=== PATIENT | male | born 1975 | race Two or more races ===

== ENCOUNTER 2019-04-03 19:46 | Inpatient (IN) | payer OTHER ==
[~2019-04-03] VITALS: Ht 162.6 cm; Wt 62.0 kg
[2019-04-03 21:27] LABS: Basophils # (auto) 0.1 uL; Eosinophils # (auto) 0.1 uL; Monocytes # (auto) 0.9 uL; Neutrophils # (auto) 6.5 uL; White Blood Cell 9.5 10^3/uL (4.4-10.8)
[2019-04-03 21:29] LABS: Basophils % (auto) 0.7 % (0.0-2.0); Eosinophils % (auto) 1.4 % (0.0-7.0); Hematocrit 46.2 % (41.0-53.0); Hemoglobin 15.2 g/dL (13.5-17.5); Lymphocytes # (auto) 1.8 uL; Lymphocytes % (auto) 19.3 % (10.0-50.0); Mean Corpuscular Hemoglobin 26.4 pg (28.0-32.0); Monocytes % (auto) 9.6 % (0.0-12.0); Nucleated Red Blood Cells % 0.1 %; Platelet Count (auto) 293 10^3/uL (140-450); Red Blood Cells 5.77 10^6/uL (4.5-5.90); Red Cell Distribution Width 14.1 % (11.8-14.3)
[2019-04-03 21:46] LABS: Albumin 3.2 g/dL (3.4-5.0); Anion Gap 10 (5-15); Blood Urea Nitrogen 13 mg/dL (7-18); Calcium 8.6 mg/dL (8.5-10.1); Carbon Dioxide 28 mmol/L (21-32); Chloride 101 mmol/L (98-107); Potassium 4.4 mmol/L (3.5-5.1); Sodium 139 mmol/L (136-145)
[2019-04-03 21:49] LABS: Alanine Aminotransferase 23 U/L (16-61); Aspartate Aminotransferase 8 U/L (15-37); BUN/Creatinine Ratio 13.8; GFR African American 112 mL/min; GFR Non-African American 92 mL/min; Glucose 397 mg/dL (74-106)
[2019-04-03 21:52] LABS: Alkaline Phosphatase 195 U/L (45-117); Bilirubin, Total 0.2 mg/dL (0.2-1.0)
[2019-04-03] MEDS ORDERED: IOHEXOL 350 MG/ML 100ML IJ ONE (23:06)
[2019-04-03] MEDS ORDERED: SODIUM CHLORIDE 0.9% 1,000 ML IV ONE (23:15)
[2019-04-04] MEDS ORDERED: PIPERACILLIN-TAZOB 3.375GM 100 ML IV ONE (02:15)
[2019-04-04] MEDS ORDERED: VANCOMYCIN 1GM/250ML 250 ML IV ONE (02:15)
[2019-04-04] MEDS ORDERED: ALBUTEROL SULF 2.5 MG/0.5ML(0.5%) NEB SOLN NEB PRN (04:30)
[2019-04-04] MEDS ORDERED: TEMAZEPAM 15 MG CAP PO PRN (04:30)
[2019-04-04] MEDS ORDERED: ACETAMINOPHEN 325 MG TAB PO PRN (04:30)
[2019-04-04] MEDS ORDERED: ONDANSETRON HCL 4 MG/2 ML VIAL IV PRN (04:30)
[2019-04-04 09:29] VITALS: BP 117/76
[2019-04-04] MEDS ORDERED: LEVOFLOXACIN 750MG 150 ML IV SCH (10:00)
[2019-04-04] MEDS: FAMOTIDINE 20 MG TAB PO SCH ×2 (10:08→20:10)
[2019-04-04 12:00] VITALS: BP 117/70
[2019-04-04] MEDS ORDERED: DEXTROSE (50%) 50ML SYRG IV PRN (14:15)
[2019-04-04] MEDS: FLUCONAZOLE 200MG/100ML 100 ML IV SCH ×2 (16:29→17:32)
--- NOTE | 2019-04-04 16:49 | NUR ---
ASSESSED FOR PRN MED NEB BREATHING TX, PT NOT IN RESPIRATORY DISTRESS, SPO2 97%, HR 102 WITH CLEAR BS. WILL CONTINUE TO MONITOR PT.
[2019-04-04 17:00] VITALS: BP 136/75
[2019-04-04] MEDS: ACCU-CHEK COMFORT CURVE STRIP VI SCH ×2 (17:32→21:28)
[2019-04-04] MEDS: InsuLIN REG 1unit/0.01ml Soln (100units/ml) SC SCH ×2 (17:33→21:28)
--- NOTE | 2019-04-04 19:39 | NUR ---
Respiratory note: AT BEDSIDE TO ASSESS FOR PRN TX, NO S/S OF DISTRESS NOTED, BS ARE CLEAR T/O, NO TX INDICATED AT THIS TIME. WILL CONTINUE TO MONITOR NEEDED.
--- NOTE | 2019-04-04 20:50 | NUR ---
PATIENT LYING IN BED COMFORTABLY. FAMILY AT BEDSIDE. INFORMED PATIENT AND FAMILY OF PLAN OF CARE, PULMONARY CONSULT WITH DR CARTER, SPUTUM CX THAT STILL NEEDS TO BE COLLECTED, AND AM LABS. PATIENT AND FAMILY VERBALIZES UNDERSTANDING. SPECIMEN GIVEN TO PATIENT. PATIENT SHOWERED THIS EVENING AND RETURNED BACK TO BED. WILL CONTINUE TO MONITOR PATIENT.
[2019-04-04 20:55] VITALS: BP 136/75
[2019-04-04 22:00] VITALS: BP 168/83
[2019-04-05 04:47] VITALS: BP 161/85
--- NOTE | 2019-04-05 04:51 | NUR ---
PATIENT EDUCATION PATIENT EDUCATION GIVEN TO PATIENT REGARDING DIABETES IN [place].
[2019-04-05] MEDS: InsuLIN REG 1unit/0.01ml Soln (100units/ml) SC SCH ×4 (06:03→21:28)
[2019-04-05] MEDS: ACCU-CHEK COMFORT CURVE STRIP VI SCH ×4 (06:03→21:29)
[2019-04-05 06:31] LABS: Basophils # (auto) 0.1 uL; Basophils % (auto) 0.4 % (0.0-2.0); Eosinophils # (auto) 0 uL; Eosinophils % (auto) 0.3 % (0.0-7.0); Mean Corpuscular Volume 79.7 fL (80.0-100.0); Monocytes # (auto) 1.2 uL; Red Blood Cells 5.69 10^6/uL (4.5-5.90)
[2019-04-05 06:34] LABS: Hematocrit 45.3 % (41.0-53.0); Lymphocytes % (auto) 14.1 % (10.0-50.0); Mean Corpuscular Hemoglobin 26.3 pg (28.0-32.0); Monocytes % (auto) 8.7 % (0.0-12.0); Neutrophils # (auto) 10.7 uL; Neutrophils % (auto) 76.5 % (37.0-80.0); Platelet Count (auto) 292 10^3/uL (140-450); Red Cell Distribution Width 13.8 % (11.8-14.3)
[2019-04-05 06:46] LABS: Anion Gap 11 (5-15); BUN/Creatinine Ratio 11.9; Blood Urea Nitrogen 8 mg/dL (7-18); Calcium 8.6 mg/dL (8.5-10.1); Carbon Dioxide 25 mmol/L (21-32); Chloride 104 mmol/L (98-107); GFR African American 165 mL/min; GFR Non-African American 136 mL/min; Glucose 219 mg/dL (74-106); Potassium 3.5 mmol/L (3.5-5.1); Sodium 140 mmol/L (136-145)
[2019-04-05 07:45] LABS: Magnesium 1.9 mg/dL (1.6-2.6)
--- NOTE | 2019-04-05 07:45 | NUR ---
opening patient in bed, bed in lowest position, call light within reach. No distress noted at this time. Will f/u with morning assessment. Chest Ct-- bronchiectesis calcified paques with R hemithorax CXR bilat reticular nodular infiltrates R greater than L pleural effusion Blood cultures negative Sputum sent but no result HGB a1c 12.4 newly diabetic [patient wbc 14 crea 0.67 tox screen pending pulmonology consult pending (darshan) will continue to monitor this patient
[2019-04-05 09:00] VITALS: BP 129/79
[2019-04-05] MEDS: FAMOTIDINE 20 MG TAB PO SCH ×2 (09:14→21:28)
[2019-04-05] MEDS: FLUCONAZOLE 200MG/100ML 100 ML IV SCH ×2 (09:14→11:20)
--- NOTE | 2019-04-05 09:55 | NUR ---
Respiratory note: ASSESSED PATIENT FOR PRN BREATHING TX. PT IS AWAKE AND ALERT. NO RESP. DISTRESS NOTED OR STATED AT THIS TIME. PATIENT IS ON ROOM AIR, SPO2 96%, RR 18, HR 110. PATIENT IS AWARE TO HAVE RT PAGED IF BREATHING TX IS NEEDED OR STATED.
[2019-04-05 13:00] VITALS: BP 126/75
[2019-04-05] MEDS: LEVOFLOXACIN 750MG 150 ML IV SCH (16:43)
--- NOTE | 2019-04-05 16:43 | NUR ---
give report to leonela Sanches transferring patient, to [place] room 238 with Myron. Report given to myron and update on latest plan of care.
--- NOTE | 2019-04-05 16:55 | NUR ---
CAME ON WC FROM [facility], ALERT AND ORIENTED X4, NOT IN DISTRESS, RR=18 SAT=97%, HEART RAT=74, DENIED SOB OR CHEST PAIN, ABDOMEN SOFT WITH ACTIVE BS, SKIN INTACT WARM TO TOUCH, NO WOUND OR SKIN BREAK NOTED, AMBULATES TO BROOM WITH OUT NO RESTRICTIONS, DENIED PAIN, VS T=98.2 RR=18 SAT=97% P=79 GU=124/73, RESTING ON BED, HEAD OF BED ELEVATED, BED ON LOW POSITION, RAILS UP X2, CALL LIGHT ON REACH, FAMILY AT BED SIDE, WILL CONTINUE MONITORING.
[2019-04-05 17:07] VITALS: BP 111/74
[2019-04-05] MEDS: metFORMIN HYDROCHLORIDE 500 MG TAB PO SCH (17:59)
--- NOTE | 2019-04-05 19:50 | NUR ---
SITTING ON BED SOCIALIZING WITH FAMILY, NOT IN DISTRESS, DENIED PAIN, REPORT WAS GIVEN TO THE PURCHASING/RECEIVING RN.
[2019-04-05 22:00] VITALS: BP 123/86
--- NOTE | 2019-04-05 22:53 | NUR ---
Respiratory note: AT BEDSIDE TO ASSESS FOR PRN TX, TX NOT INDICATED AT THIS TIME, BS ARE CLEAR T/O. NO S/S OF DISTRESS NOTED. PT AWARE I CAN BE PAGED AT ANY TIME. RT NAME AND PAGER ASSIGNMENT WRITTEN ON PTS ROOM BOARD. WILL CONTINUE TO MONITOR.
[2019-04-06 05:00] VITALS: BP 131/82
--- NOTE | 2019-04-06 06:05 | NUR ---
CALLED RT AND NOTIFIED OF THE NEED FOR SPUTUM INDUCTION ORDERED FOR AFB.
--- NOTE | 2019-04-06 06:45 | NUR ---
Respiratory note: PT ASSESSED FOR PRN MEDNEB TX. NO RESPIRATORY DISTRESS NOTED AT THIS TIME. TX NOT INDICATED. SPO2 94% ON RA B/S HR 106 CLEAR-DIMINISHED, RR 20. PT AWARE TO HAVE RT PAGED IF THEY BECOME SOB.
[2019-04-06] MEDS: metFORMIN HYDROCHLORIDE 500 MG TAB PO SCH ×2 (07:38→18:40)
[2019-04-06] MEDS: InsuLIN REG 1unit/0.01ml Soln (100units/ml) SC SCH ×4 (07:39→20:31)
[2019-04-06] MEDS: ACCU-CHEK COMFORT CURVE STRIP VI SCH ×4 (07:39→20:31)
[2019-04-06 08:25] VITALS: BP 90/60
--- NOTE | 2019-04-06 09:50 | NUR ---
PT'S AT BEDSIDE. INSTRUCTED AND EDUCATED ON AIRBORNE ISOLATION PRECAUTIONS. PT'S STATES SHE WILL NOT WEAR THE PROTECTIVE EQUIPMENT.
[2019-04-06] MEDS ORDERED: VANCOMYCIN PER PHARMACY 0 MG IV SCH (10:45)
[2019-04-06] MEDS: FAMOTIDINE 20 MG TAB PO SCH ×2 (10:47→20:18)
[2019-04-06] MEDS: FLUCONAZOLE 200MG/100ML 100 ML IV SCH ×2 (10:47→12:03)
[2019-04-06] MEDS: SODIUM CHLORIDE 0.9% 1,000 ML IV SCH (12:03)
[2019-04-06] MEDS: VANCOMYCIN 1GM/250ML 250 ML IV SCH ×2 (12:24→20:18)
[2019-04-06] MEDS: LEVOFLOXACIN 750MG 150 ML IV SCH (12:24)
[2019-04-06 13:00] VITALS: BP 114/68
--- NOTE | 2019-04-06 13:25 | NUR ---
DR. GUEVARA IN TO SEE PT AND TO SPEAK WITH .
[2019-04-06 17:31] VITALS: BP 117/65
--- NOTE | 2019-04-06 18:11 | NUR ---
Respiratory note: ASSESSED PT FOR PRN MED NEB AT THIS TIME, PT DENIES SOB AT THIS TIME, NO RESP DISTRESS NOTED, NO TX INDICATED. PULSE OX 95% ON RA, HR 105, RR 18, BILATERAL BS CLEAR
[2019-04-06 22:01] VITALS: BP 119/73
[2019-04-07] MEDS: SODIUM CHLORIDE 0.9% 1,000 ML IV SCH ×2 (03:25→21:00)
[2019-04-07] MEDS: VANCOMYCIN 1GM/250ML 250 ML IV SCH ×3 (03:28→20:59)
--- NOTE | 2019-04-07 04:20 | NUR ---
0330 Sputum specimen sent for AFB, Respiratory culture and Respiratory culture for mycoplasma & fungal culture, verified with Virginia from Lab. Noted AFB for 04/06 still active in orders, not in process. Virginia from Lab said to follow up with [facility] in am when they open at 8am.
[2019-04-07 04:35] VITALS: BP 107/70
[2019-04-07] MEDS: InsuLIN REG 1unit/0.01ml Soln (100units/ml) SC SCH ×4 (06:41→21:03)
[2019-04-07] MEDS: metFORMIN HYDROCHLORIDE 500 MG TAB PO SCH ×2 (06:41→18:05)
[2019-04-07] MEDS: ACCU-CHEK COMFORT CURVE STRIP VI SCH ×4 (06:42→21:03)
[2019-04-07 07:30] VITALS: BP 115/71
[2019-04-07] MEDS: FLUCONAZOLE 200MG/100ML 100 ML IV SCH ×2 (09:30→10:31)
[2019-04-07] MEDS: FAMOTIDINE 20 MG TAB PO SCH ×2 (09:30→21:00)
--- NOTE | 2019-04-07 10:23 | NUR ---
[facility] DE[facility]. CONTACTED. 04/06; 04/07 AFB SPECIMEN COLLECTED AND RECEIVED. DR. GUEVARA MADE AWARE OF BOTH COLLECTIONS AND MADE AWARE TO CALL [facility]. FOR CLARIFICATION OF PRIOR ORDER.
[2019-04-07] MEDS: LEVOFLOXACIN 750MG 150 ML IV SCH (11:36)
[2019-04-07 12:15] LABS: Basophils # (auto) 0.1 uL; Eosinophils # (auto) 0.1 uL; Eosinophils % (auto) 0.6 % (0.0-7.0); Platelet Count (auto) 283 10^3/uL (140-450); White Blood Cell 9.7 10^3/uL (4.4-10.8)
[2019-04-07 12:20] LABS: Basophils % (auto) 0.8 % (0.0-2.0); Hematocrit 44.7 % (41.0-53.0); Hemoglobin 14.6 g/dL (13.5-17.5); Lymphocytes # (auto) 1.7 uL; Mean Corpuscular Hemoglobin 26.4 pg (28.0-32.0); Mean Corpuscular Hgb Conc. 32.6 g/dL (32.0-36.0); Mean Corpuscular Volume 80.7 fL (80.0-100.0); Monocytes # (auto) 1.2 uL; Monocytes % (auto) 12.5 % (0.0-12.0); Neutrophils # (auto) 6.6 uL; Neutrophils % (auto) 68.1 % (37.0-80.0); Nucleated Red Blood Cells % 0.1 %; Red Blood Cells 5.54 10^6/uL (4.5-5.90); Red Cell Distribution Width 13.9 % (11.8-14.3)
[2019-04-07 12:41] LABS: BUN/Creatinine Ratio 14.8
[2019-04-07 13:07] VITALS: BP 116/77
[2019-04-07] MEDS ORDERED: VANCOMYCIN 1GM/250ML 250 ML IV SCH (14:00)
--- NOTE | 2019-04-07 15:10 | NUR ---
RT NOTE: PRN TX. NOT INDICATED AT THIS TIME. NO S/S OF RESPIRATORY DISTRESS NOTED. PT. HR. 95, RR 20, POX 96% R/A.
--- NOTE | 2019-04-07 15:22 | NUR ---
Nutrition Assessment Notes please see attached link for complete assessment Est. Needs BW [id number] kcal (25-30 kcal/kgBW), 62-74 gms pro (1.0-1.2 gms/kgBW). Will continue to monitor pertinent labs and reassess nutrient need prn Addendum: 04/07/19 at [address] Amended: Links added.
[2019-04-07 17:02] VITALS: BP 104/79
--- NOTE | 2019-04-07 17:36 | NUR ---
Respiratory note: PT IN NO DISTRESS. PT IN NO NEED OF SVN AT THIS TIME. BREATH SOUNDS ARE CLEAR TO DIM BILATERALLY. PT KNOWS TO CALL RN IF SOB OCCURS.
[2019-04-07 21:39] VITALS: BP 113/74
[2019-04-07 21:51] VITALS: BP 113/74
[2019-04-08] MEDS: VANCOMYCIN 1GM/250ML 250 ML IV SCH ×4 (02:01→21:33)
--- NOTE | 2019-04-08 04:19 | NUR ---
3RD SPUTUM SPECIMEN FOR AFB AND RESPIRATORY CULTURE SENT TO LAB AND VERIFIED WITH DENISA IN LAB.
[2019-04-08 05:23] VITALS: BP 113/67
--- NOTE | 2019-04-08 06:15 | NUR ---
Respiratory note: ROUTINE PRN MN TX ASSESSMENT DONE HR 96, RR 20, POX 96% ON RA, BREATH SOUNDS ARE CLEAR. NO SOB OR DISTRESS NOTED AT THIS TIME. PT WAS NOTIFY TO HAVE RT PAGE IF MN TX WAS NEEDED.
[2019-04-08] MEDS: metFORMIN HYDROCHLORIDE 500 MG TAB PO SCH ×2 (07:24→18:28)
[2019-04-08] MEDS: InsuLIN REG 1unit/0.01ml Soln (100units/ml) SC SCH ×4 (07:24→21:43)
[2019-04-08] MEDS: ACCU-CHEK COMFORT CURVE STRIP VI SCH ×4 (07:25→21:44)
--- NOTE | 2019-04-08 08:10 | NUR ---
LAB CALLED FOR VANCO TROUGH, BLOOD DRAWN. AWAITING RESULT.
[2019-04-08 08:40] VITALS: BP 144/77
[2019-04-08] MEDS: FAMOTIDINE 20 MG TAB PO SCH ×2 (10:48→21:35)
[2019-04-08] MEDS: FLUCONAZOLE 200MG/100ML 100 ML IV SCH ×2 (10:49→11:37)
[2019-04-08] MEDS: SODIUM CHLORIDE 0.9% 1,000 ML IV SCH (12:28)
[2019-04-08] MEDS: LEVOFLOXACIN 750MG 150 ML IV SCH (12:28)
[2019-04-08 12:30] VITALS: BP 131/72
[2019-04-08 17:26] VITALS: BP 119/70
--- NOTE | 2019-04-08 19:13 | NUR ---
Respiratory note: ASSESSED PT FOR PRN MED NEB AT THIS TIME, PT DENIES SOB AT THIS TIME, NO RESP DISTRESS NOTED, NO TX INDICATED, PULSE OX 96% ON RA, HR 100, RR 18, BILATERAL BS CLEAR.
[2019-04-08 22:00] VITALS: BP 106/76
[2019-04-09] MEDS: VANCOMYCIN 1GM/250ML 250 ML IV SCH ×4 (01:51→20:31)
[2019-04-09] MEDS: SODIUM CHLORIDE 0.9% 1,000 ML IV SCH ×2 (04:12→14:35)
[2019-04-09 05:00] VITALS: BP 120/74
[2019-04-09] MEDS: metFORMIN HYDROCHLORIDE 500 MG TAB PO SCH ×2 (06:21→18:35)
[2019-04-09] MEDS: InsuLIN REG 1unit/0.01ml Soln (100units/ml) SC SCH ×4 (06:26→22:35)
[2019-04-09] MEDS: ACCU-CHEK COMFORT CURVE STRIP VI SCH ×4 (06:27→22:00)
--- NOTE | 2019-04-09 07:20 | NUR ---
Opening Shift Note Assumed care of patient, awake and alert. No S/S of distress/SOB or pain. Instructed on POC and to call for assist PRN, will continue to monitor for changes Q1hr and PRN.
[2019-04-09 08:00] VITALS: BP 116/73
--- NOTE | 2019-04-09 10:05 | NUR ---
Respiratory note: PATIENT ASSESSED FOR PRN MED-NEB TX, MEDICATION NOT INDICATED AT THIS TIME PATIENT DENIED NEED AND WAS SHOWING NO SIGNS ACUTE RESPIRATORY DISTRESS. PATIENT INSTRUCTED TO CALL FOR RT IF HE FELT THE NEED FOR TX AT A LATER TIME. 96% R/A
[2019-04-09] MEDS: FLUCONAZOLE 200MG/100ML 100 ML IV SCH ×2 (10:22→11:54)
[2019-04-09] MEDS: FAMOTIDINE 20 MG TAB PO SCH ×2 (10:22→22:34)
[2019-04-09 12:00] VITALS: BP 116/58
[2019-04-09] MEDS: LEVOFLOXACIN 750MG 150 ML IV SCH (12:51)
[2019-04-09 17:00] VITALS: BP 108/71
--- NOTE | 2019-04-09 19:15 | NUR ---
Opening Shift Note Received report from Marisela LIMA. Assumed care of patient, awake and alert, family at bedside. No S/S of distress/SOB or pain. Instructed on POC and to call for assist PRN, will continue to monitor for changes Q1hr and PRN.
[2019-04-09 20:00] VITALS: BP 102/73
--- NOTE | 2019-04-09 20:30 | NUR ---
ASSESSED PT @ THIS TIME FOR PRN MED NEB TX. PT IS RESTING COMFORTABLY IN BED. HE STATES HIS BREATHING IS DOING FINE. NO DISTRESS NOTED. CURRENTLY ON R/A SPO2 95%, HR 105, RR 16 AND BS ARE CLEAR T/O. HE IS AWARE TO CALL IF HE FEELS SOB.
[2019-04-09 21:00] VITALS: BP 102/73
[2019-04-10] MEDS: VANCOMYCIN 1GM/250ML 250 ML IV SCH ×4 (01:55→20:20)
[2019-04-10 05:00] VITALS: BP 122/73
[2019-04-10 06:39] LABS: Basophils # (auto) 0.1 uL; Eosinophils # (auto) 0.1 uL; Hemoglobin 14.3 g/dL (13.5-17.5); Lymphocytes # (auto) 1.7 uL; White Blood Cell 12.1 10^3/uL (4.4-10.8)
[2019-04-10 06:41] LABS: Basophils % (auto) 0.8 % (0.0-2.0); Eosinophils % (auto) 1.2 % (0.0-7.0); Hematocrit 42.4 % (41.0-53.0); Lymphocytes % (auto) 14.4 % (10.0-50.0); Mean Corpuscular Hemoglobin 26.7 pg (28.0-32.0); Mean Corpuscular Hgb Conc. 33.7 g/dL (32.0-36.0); Mean Corpuscular Volume 79.2 fL (80.0-100.0); Monocytes # (auto) 1.2 uL; Monocytes % (auto) 10.3 % (0.0-12.0); Neutrophils # (auto) 8.8 uL; Neutrophils % (auto) 73.3 % (37.0-80.0); Platelet Count (auto) 311 10^3/uL (140-450); Red Blood Cells 5.35 10^6/uL (4.5-5.90); Red Cell Distribution Width 13.7 % (11.8-14.3)
[2019-04-10] MEDS: metFORMIN HYDROCHLORIDE 500 MG TAB PO SCH ×2 (06:53→18:13)
[2019-04-10] MEDS: ACCU-CHEK COMFORT CURVE STRIP VI SCH ×4 (06:53→22:04)
[2019-04-10 06:55] LABS: Potassium 3.9 mmol/L (3.5-5.1)
[2019-04-10] MEDS: InsuLIN REG 1unit/0.01ml Soln (100units/ml) SC SCH ×4 (06:55→22:00)
[2019-04-10 06:56] LABS: BUN/Creatinine Ratio 10.8
--- NOTE | 2019-04-10 07:20 | NUR ---
Open Shift Note Received report on patient, awake and lying in bed. Patient shows no signs of distress or SOB at this time. Discussed POC with patient and how we are awaiting TB results. Patient verbalized understanding. Bed in lowest locked position, side rails up x2 and call light within reach. Will continue to monitor.
--- NOTE | 2019-04-10 07:35 | NUR ---
Patient stable at this time, no sob or pain. Endorsed care to Shreya LIMA.
[2019-04-10 09:00] VITALS: BP 120/67
--- NOTE | 2019-04-10 09:30 | NUR ---
RT NOTE: WENT TO PTS ROOM TO ASSESS FOR PRN BREATHING TX, PT SITTING UP IN BED, NO S/S OF SOB. HR- 94, SPO2 98% ON RA, RR 16, BREATH SOUNDS CLEAR. PT AWARE TO CALL IF HAVING ANY SOB. WILL CONTINUE TO MONITOR PT.
--- NOTE | 2019-04-10 09:45 | NUR ---
Pharmacy Clarification Called pharmacy in regards to Vanco, spoke with Ebony who stated it is ok to administer today's dose of Vanco even though the trough has not been drawn since the . Verbalized understanding.
[2019-04-10] MEDS: FLUCONAZOLE 200MG/100ML 100 ML IV SCH ×2 (11:03→12:06)
[2019-04-10] MEDS: SODIUM CHLORIDE 0.9% 1,000 ML IV SCH (11:04)
[2019-04-10] MEDS: FAMOTIDINE 20 MG TAB PO SCH ×2 (11:04→22:04)
[2019-04-10 12:00] VITALS: BP 111/72
--- NOTE | 2019-04-10 15:26 | NUR ---
Midline Placement Patient educated on need for midline placement. All risks and benefits explained and all questions and concerns addresses prior to procedure. 18g/10cm midline inserted via right basilic vein using Ultrasound x 1 attempt. Sterile technique utilized. Blood return obtained from single lumen and flushed easily with NS using proper technique. Midline secured with saline lock; biodisc and occlusive dressing applied. Primary RN notified. Midline lot #[id number].
[2019-04-10] MEDS: LEVOFLOXACIN 750MG 150 ML IV SCH (17:01)
[2019-04-10 17:10] VITALS: BP 111/72
--- NOTE | 2019-04-10 19:01 | NUR ---
Respiratory note: ASSESSED PT FOR PRN MED NEB AT THIS TIME, PT DENIES SOB AT THIS TIME, NO RESP DISTRESS NOTED, NO TX INDICATED. PULSE OX 94% ON RA, HR 105,RR 18, BILATERAL BS CLEAR.
--- NOTE | 2019-04-10 19:30 | NUR ---
Opening Shift Note Received report from Shreya LIMA. Assumed care of patient, awake and alert, at bedside. No S/S of distress/SOB or pain. Instructed on POC and to call for assist PRN, will continue to monitor for changes Q1hr and PRN.
[2019-04-10 20:38] VITALS: BP 111/72
--- NOTE | 2019-04-10 20:39 | NUR ---
Medication Error Call to Pharmacy to inform of medication error. Per Kati in Pharmacy send the medication bag to her and will look at it. Instructed RN to stop the Vancomycin that is running now and will adjust the time. Charge nurse Alex made aware, will do incidence report.
[2019-04-10 21:27] VITALS: BP 98/64
[2019-04-11] MEDS: VANCOMYCIN 1GM/250ML 250 ML IV SCH ×2 (02:08→09:15)
[2019-04-11 05:08] VITALS: BP 121/74
[2019-04-11] MEDS: ACCU-CHEK COMFORT CURVE STRIP VI SCH ×4 (06:55→21:34)
[2019-04-11] MEDS: InsuLIN REG 1unit/0.01ml Soln (100units/ml) SC SCH ×4 (06:55→21:54)
[2019-04-11] MEDS: metFORMIN HYDROCHLORIDE 500 MG TAB PO SCH ×2 (06:56→18:52)
--- NOTE | 2019-04-11 07:50 | NUR ---
Patient stable, no complaints made. Endorsed care to Ralph LIMA.
[2019-04-11 09:00] VITALS: BP 110/66
--- NOTE | 2019-04-11 09:18 | NUR ---
Spoke to Dr. Campbell. She is aware that patient is AFB positive.
[2019-04-11] MEDS: FAMOTIDINE 20 MG TAB PO SCH ×2 (09:36→21:34)
[2019-04-11] MEDS ORDERED: cefTRIAXone 1GM/50ML D5W 50 ML IV ONE (10:45)
[2019-04-11] MEDS ORDERED: TEMAZEPAM 15 MG CAP PO PRN (10:45)
[2019-04-11 10:53] LABS: Calcium 9.7 mg/dL (8.5-10.1)
[2019-04-11 10:56] LABS: Bilirubin, Total 0.5 mg/dL (0.2-1.0)
--- NOTE | 2019-04-11 11:49 | NUR ---
TRANSFER PACKET FAXED TO [facility]
[2019-04-11] MEDS: FLUCONAZOLE 200MG/100ML 100 ML IV SCH ×2 (12:04→14:34)
[2019-04-11] MEDS: SODIUM CHLORIDE 0.9% 1,000 ML IV SCH (12:05)
[2019-04-11 13:00] VITALS: BP 119/74
--- NOTE | 2019-04-11 15:45 | NUR ---
Gonzales Frances caseworker re: follow up regarding patient transfer.
[2019-04-11 17:00] VITALS: BP 110/65
--- NOTE | 2019-04-11 17:16 | NUR ---
[facility] on will call I spoke to Regina at [facility]
--- NOTE | 2019-04-11 17:19 | NUR ---
BRIANNA aware of respiratory precautions. I spoke to Macarena at [facility] and answered her questions. I also sent e-mail from [facility] hopper feeder to [facility] that it is okay to transport pt. Macarena confirmed they got this e-mail
--- NOTE | 2019-04-11 17:24 | NUR ---
transfer. per Macarena no iso beds as of yet
--- NOTE | 2019-04-11 18:58 | NUR ---
Closing note Patient having dinner, no signs of distress noted. Report given to night RN. Transfer still pending.
[2019-04-11 21:48] VITALS: BP 115/70
[2019-04-11 22:00] VITALS: BP 115/70
[2019-04-12] MEDS: SODIUM CHLORIDE 0.9% 1,000 ML IV SCH ×2 (03:25→20:05)
[2019-04-12 05:01] VITALS: BP 114/82
[2019-04-12] MEDS: InsuLIN REG 1unit/0.01ml Soln (100units/ml) SC SCH ×4 (06:58→21:49)
[2019-04-12] MEDS: metFORMIN HYDROCHLORIDE 500 MG TAB PO SCH ×2 (06:58→18:06)
[2019-04-12] MEDS: ACCU-CHEK COMFORT CURVE STRIP VI SCH ×4 (06:58→21:40)
--- NOTE | 2019-04-12 07:50 | NUR ---
OPENING NOTE Assumed care of patient from NOC RNMarsha. Patient awake and alert with no S/S of distress/SOB or pain. Isolation precautions in place. Instructed on POC and to call for assist PRN, verbalized understanding. Bed in lowest, locked position with side rails up x2 and call light within reach. Will continue to monitor for changes Q1hr and PRN.
[2019-04-12 09:00] VITALS: BP 111/69
[2019-04-12] MEDS: FAMOTIDINE 20 MG TAB PO SCH ×2 (09:18→21:39)
[2019-04-12] MEDS: cefTRIAXone 1GM/50ML D5W 50 ML IV SCH (09:18)
--- NOTE | 2019-04-12 09:48 | NUR ---
[facility] has no TB philippe and has one pt waiting for 9 days for the next TB rm once it comes available. I will try other hospitals
[2019-04-12] MEDS: FLUCONAZOLE 200MG/100ML 100 ML IV SCH ×2 (10:13→12:01)
--- NOTE | 2019-04-12 10:18 | NUR ---
I have faxed to [facility] and [facility] even though they have no beds in hopes they get an opening . [facility] has no beds.
[2019-04-12 13:00] VITALS: BP 126/72
--- NOTE | 2019-04-12 14:11 | NUR ---
[facility] ON WILL CALL, JUST VERIFIED
--- NOTE | 2019-04-12 14:46 | NUR ---
Nutrition Follow-up Notes Wt.: 61.0 kg Pt was sleeping in isolation room no family by bedside. per pt records pt with possible active TB awaiting tx to other facility. pt with no distress noted per nursing currently on CCHO 60 gm/meal diet with adequate PO of 100% x 4 per RN doc Est. Needs BW [id number] kcal (25-30 kcal/kgBW), 62-74 gms pro (1.0-1.2 gms/kgBW). Will continue to monitor pertinent labs and reassess nutrient need prn Labs: GLU 235 H, ALB 3.0 L. Skin: Checo scale 22, low risk, skin intact per RN doc. GI: Pt had 1 BM on 04/10 per automation tender. PES: Altered nutrition related lab values r/t acute/chronic medical condition aeb hyperglycemia, mild hypoalb, elev A1C Will continue to monitor PO intake, skin status, pertinent labs and weight trend. F/u in 3-5 days. Rec.: 1.) refer to CDE on DC. 2) continue current plan of care
[2019-04-12 17:00] VITALS: BP 95/58
--- NOTE | 2019-04-12 19:15 | NUR ---
CLOSING NOTE Endorsed care of patient to NOC Marsha LIMA.
[2019-04-12 22:00] VITALS: BP 116/71
--- NOTE | 2019-04-12 22:54 | NUR ---
PULM DR CARTER ARTIFICIAL CHERRY MAKER CALLED FOR NEW MEDICATIONS ORDERS. ALL NEW MEDICATIONS OK TO START IN AM 04/13/19. AKIN.
[2019-04-13 05:23] VITALS: BP 110/67
[2019-04-13] MEDS: ACCU-CHEK COMFORT CURVE STRIP VI SCH ×4 (06:23→20:50)
[2019-04-13] MEDS: InsuLIN REG 1unit/0.01ml Soln (100units/ml) SC SCH ×4 (06:23→20:51)
[2019-04-13] MEDS: metFORMIN HYDROCHLORIDE 500 MG TAB PO SCH ×2 (06:23→17:47)
--- NOTE | 2019-04-13 07:40 | NUR ---
OPENING NOTE Assumed care of patient from NOC RNMarsha. Patient awake and alert with no S/S of distress/SOB or pain. Instructed on POC and to call for assist PRN, verbalized understanding. Isolation precautions in place. Bed in lowest, locked position with side rails up x2 and call light within reach. Will continue to monitor for changes Q1hr and PRN.
[2019-04-13 08:58] VITALS: BP 116/61
[2019-04-13] MEDS: cefTRIAXone 1GM/50ML D5W 50 ML IV SCH (10:03)
[2019-04-13] MEDS: RIFAMPIN 300 MG CAP PO SCH (10:03)
[2019-04-13] MEDS: ETHAMBUTOL HCL 400 MG TAB PO SCH (10:04)
[2019-04-13] MEDS: FAMOTIDINE 20 MG TAB PO SCH ×2 (10:04→20:50)
[2019-04-13] MEDS: LEVOFLOXACIN 500 MG TAB PO SCH (10:04)
--- NOTE | 2019-04-13 10:04 | NUR ---
PAGED Left message with Dr. Davila's office regarding Pharmacy recommendation to change dosage of Pyrazinamide from 1000mg to 1500mg. Awaiting call back.
[2019-04-13] MEDS: FLUCONAZOLE 200MG/100ML 100 ML IV SCH ×2 (10:32→11:43)
[2019-04-13] MEDS: SODIUM CHLORIDE 0.9% 1,000 ML IV SCH (12:55)
[2019-04-13] MEDS: PYRAZINAMIDE 500 MG TAB PO SCH (12:55)
[2019-04-13 13:00] VITALS: BP 156/92
--- NOTE | 2019-04-13 15:04 | NUR ---
[facility] STILL NO ISO BEDS, I HAVE FAXED TO [facility] PH [phone] AND [facility] [phone] AND WILL CALL SHORTLY TO SEE IF THEY HAVE ANY ISO BEDS
--- NOTE | 2019-04-13 16:35 | NUR ---
[facility] IS NOT CONTRACTED WITH [facility]. WE ARE ALSO RUNNING INTO ISSUE WITH PT GETTING ACCEPTED OUTSIDE OF [facility]. WE NEED PERMISSION OF PUBLIC HEALTH OFFICIALS IN EACH COUNTY IF PT GETS ACCEPTED FROM A HOSPITAL OUTSIDE OF [facility].
[2019-04-13 17:00] VITALS: BP 120/74
--- NOTE | 2019-04-13 19:22 | NUR ---
CLOSING NOTE Endorsed care of patient to NOC Marsha LIMA.
[2019-04-13 21:46] VITALS: BP 122/85
[2019-04-14 04:57] VITALS: BP 106/66
[2019-04-14] MEDS: SODIUM CHLORIDE 0.9% 1,000 ML IV SCH ×2 (05:25→18:11)
[2019-04-14] MEDS: metFORMIN HYDROCHLORIDE 500 MG TAB PO SCH ×2 (06:07→18:11)
[2019-04-14] MEDS: ACCU-CHEK COMFORT CURVE STRIP VI SCH ×4 (06:07→21:37)
[2019-04-14 06:18] LABS: Basophils % (auto) 0.8 % (0.0-2.0)
[2019-04-14 06:20] LABS: Basophils # (auto) 0.1 uL; Eosinophils # (auto) 0 uL; Eosinophils % (auto) 0.3 % (0.0-7.0); Hematocrit 44.3 % (41.0-53.0); Hemoglobin 14.9 g/dL (13.5-17.5); Mean Corpuscular Hemoglobin 26.4 pg (28.0-32.0); Mean Corpuscular Hgb Conc. 33.5 g/dL (32.0-36.0); Mean Corpuscular Volume 78.8 fL (80.0-100.0); Monocytes # (auto) 1.5 uL; Monocytes % (auto) 10.2 % (0.0-12.0); Neutrophils # (auto) 10.7 uL; Neutrophils % (auto) 74.7 % (37.0-80.0); Platelet Count (auto) 368 10^3/uL (140-450); Red Blood Cells 5.62 10^6/uL (4.5-5.90); Red Cell Distribution Width 13.5 % (11.8-14.3); White Blood Cell 14.3 10^3/uL (4.4-10.8)
[2019-04-14 06:21] LABS: BUN/Creatinine Ratio 18.4; Calcium 9.5 mg/dL (8.5-10.1); Magnesium 2.2 mg/dL (1.6-2.6); Potassium 3.8 mmol/L (3.5-5.1)
[2019-04-14] MEDS: InsuLIN REG 1unit/0.01ml Soln (100units/ml) SC SCH ×4 (07:00→21:37)
--- NOTE | 2019-04-14 07:20 | NUR ---
Opening Shift Note Assumed care of patient, awake and alert, sitting up in bed. No S/S of distress/SOB, no pain noted or reported. Respirations are even and unlabored. Updated on POC and instructed to call for assist as needed, pt. verbalized understanding. Bed locked in lowest position, side rails up x 2, call light within reach. Will continue to monitor for changes Q1hr and PRN.
[2019-04-14 09:30] VITALS: BP 103/62
[2019-04-14] MEDS: FLUCONAZOLE 200MG/100ML 100 ML IV SCH ×2 (09:34→11:00)
[2019-04-14] MEDS: RIFAMPIN 300 MG CAP PO SCH (09:34)
[2019-04-14] MEDS: LEVOFLOXACIN 500 MG TAB PO SCH (09:34)
[2019-04-14] MEDS: ETHAMBUTOL HCL 400 MG TAB PO SCH (09:34)
[2019-04-14] MEDS: PYRAZINAMIDE 500 MG TAB PO SCH (09:35)
[2019-04-14] MEDS: FAMOTIDINE 20 MG TAB PO SCH ×2 (09:35→21:37)
[2019-04-14 13:36] VITALS: BP 120/68
[2019-04-14 17:08] VITALS: BP 118/70
--- NOTE | 2019-04-14 19:20 | NUR ---
Opening Shift Note Assumed care of patient, awake and alert. No S/S of distress/SOB or pain. Bedside report with day RN Virgiina Instructed on POC and to callfor assist PRN, will continue to monitor for changes Q1hr and PRN. Bed locked and lowest position, call light within reach.
[2019-04-14 22:00] VITALS: BP 126/70
[2019-04-15 05:00] VITALS: BP 124/78
[2019-04-15] MEDS: ACCU-CHEK COMFORT CURVE STRIP VI SCH ×4 (06:09→22:47)
[2019-04-15] MEDS: InsuLIN REG 1unit/0.01ml Soln (100units/ml) SC SCH ×4 (06:10→22:00)
[2019-04-15] MEDS: metFORMIN HYDROCHLORIDE 500 MG TAB PO SCH ×2 (06:28→17:12)
--- NOTE | 2019-04-15 07:25 | NUR ---
Opening Shift Note Assumed care of patient, awake and alert, sitting up in bed watching television. No S/S of distress/SOB, no pain noted or reported. Respirations are even and unlabored. Updated on POC and instructed to call for assist as needed, pt. verbalized understanding. Bed locked in lowest position, side rails up x 2, call light within reach. Will continue to monitor for changes Q1hr and PRN.
[2019-04-15 09:19] VITALS: BP 114/70
[2019-04-15] MEDS: ETHAMBUTOL HCL 400 MG TAB PO SCH (09:48)
[2019-04-15] MEDS: PYRAZINAMIDE 500 MG TAB PO SCH (09:48)
[2019-04-15] MEDS: LEVOFLOXACIN 500 MG TAB PO SCH (09:48)
[2019-04-15] MEDS: FAMOTIDINE 20 MG TAB PO SCH ×2 (09:48→21:11)
[2019-04-15] MEDS: RIFAMPIN 300 MG CAP PO SCH (09:48)
[2019-04-15] MEDS: FLUCONAZOLE 200MG/100ML 100 ML IV SCH ×2 (09:48→12:09)
[2019-04-15 13:24] VITALS: BP 118/84
[2019-04-15] MEDS: SODIUM CHLORIDE 0.9% 1,000 ML IV SCH (13:27)
[2019-04-15 17:06] VITALS: BP 108/70
--- NOTE | 2019-04-15 19:25 | NUR ---
OPENING NOTE Received report from day shift RN. Patient is A&O X's 4 with no s/s of distress. Respirations are even and unlabored. He reports no pain. Family is at bedside. Educated patient on POC and to use call light when in need of assistance. Patient verbalized understanding. Will continue to monitor for changes and round hourly/PRN.
[2019-04-15 22:00] VITALS: BP 114/73
--- NOTE | 2019-04-16 02:39 | NUR ---
ROUNDS Patient resting, No s/s of distress/discomfort . Will continue care
[2019-04-16 05:00] VITALS: BP 110/65
[2019-04-16] MEDS: InsuLIN REG 1unit/0.01ml Soln (100units/ml) SC SCH ×5 (06:41→23:03)
[2019-04-16] MEDS: ACCU-CHEK COMFORT CURVE STRIP VI SCH ×5 (06:41→22:41)
[2019-04-16] MEDS: metFORMIN HYDROCHLORIDE 500 MG TAB PO SCH ×2 (06:41→18:04)
--- NOTE | 2019-04-16 07:45 | NUR ---
OPENING NOTE Assumed care of patient from NOC RN. Patient awake and alert with no S/S of distress/SOB or pain. Instructed on POC and to call for assist PRN, verbalized understanding. Isolation precautions in place. Bed in lowest, locked position with side rails up x2 and call light within reach. Will continue to monitor for changes Q1hr and PRN.
[2019-04-16] MEDS: SODIUM CHLORIDE 0.9% 1,000 ML IV SCH (08:05)
[2019-04-16 09:00] VITALS: BP 100/60
[2019-04-16] MEDS: RIFAMPIN 300 MG CAP PO SCH (10:19)
[2019-04-16] MEDS: PYRAZINAMIDE 500 MG TAB PO SCH (10:19)
[2019-04-16] MEDS: ETHAMBUTOL HCL 400 MG TAB PO SCH (10:19)
[2019-04-16] MEDS: FAMOTIDINE 20 MG TAB PO SCH ×2 (10:19→21:28)
[2019-04-16] MEDS: LEVOFLOXACIN 500 MG TAB PO SCH (10:19)
[2019-04-16] MEDS: FLUCONAZOLE 200MG/100ML 100 ML IV SCH (10:19)
--- NOTE | 2019-04-16 10:55 | NUR ---
CALLED [facility] AND SPOKE TO KOFI IN BED CONTROL, SHE STATE SHE HAS TB BEDS AND GAVE ME THE PH # FOR [facility] AT [phone], I SENT THIS TO DR AGRAWAL VIA PAGE SO SHE CAN CALL AND SPEAK WITH A POTENTIAL ACCEPTING
[2019-04-16] MEDS ORDERED: FLUCONAZOLE 200MG/100ML 100 ML IV ONE (12:15)
[2019-04-16 13:09] VITALS: BP 105/70
--- NOTE | 2019-04-16 14:02 | NUR ---
Transfer: Called Kate at [facility] and informed her accepting MD is Dr. Yousif at [place] and had to leave message, await call back .
--- NOTE | 2019-04-16 14:12 | NUR ---
CORRECTION TO MY PREVIOUS NOTE. NO ACCEPTING MD OF YET PER DR GUEVARA, DR GUEVARA IS STILL TRYING TO TALK WITH DR GARCIA WHO IS INFORMATION TECHNOLOGY CONSULTANT FOR [facility]
--- NOTE | 2019-04-16 14:18 | NUR ---
AUTH FOR [facility] IS [id number]
--- NOTE | 2019-04-16 16:34 | NUR ---
[facility] # IS [phone]
[2019-04-16 16:42] VITALS: BP 100/68
--- NOTE | 2019-04-16 19:30 | NUR ---
Opening Shift Note Assumed care of patient, awake and alert. No S/S of distress/SOB or pain. Insructed on POC and to callfor assist PRN, will continue to monitor for changes Q1hr and PRN. Fall and safety precautions in place. Airborne precautions in place. Call light within reach.
--- NOTE | 2019-04-16 19:36 | NUR ---
CLOSING NOTE Endorsed care of patient to NOC RN, Rosario.
[2019-04-16 22:00] VITALS: BP 114/71
--- NOTE | 2019-04-16 22:45 | NUR ---
Assumed care of patient Patient resting in bed no S/S of distress
--- NOTE | 2019-04-16 22:45 | NUR ---
ENDORSED CARE Endorsed care to Lalo LIMA to continue care. Patient stable, no signs of distress noted. Fall and safety precautions in place. Call light within reach. Airborne precautions in place.
[2019-04-17] MEDS: SODIUM CHLORIDE 0.9% 1,000 ML IV SCH ×2 (00:05→17:56)
[2019-04-17 05:00] VITALS: BP 114/72
[2019-04-17] MEDS: InsuLIN REG 1unit/0.01ml Soln (100units/ml) SC SCH ×4 (05:51→22:00)
[2019-04-17] MEDS: ACCU-CHEK COMFORT CURVE STRIP VI SCH ×4 (05:51→22:02)
[2019-04-17] MEDS: metFORMIN HYDROCHLORIDE 500 MG TAB PO SCH ×2 (05:52→17:56)
[2019-04-17 07:25] LABS: Basophils # (auto) 0.1 uL; Eosinophils # (auto) 0.1 uL; Hemoglobin 13.9 g/dL (13.5-17.5); Red Blood Cells 5.34 10^6/uL (4.5-5.90); Red Cell Distribution Width 13.7 % (11.8-14.3)
[2019-04-17 07:28] LABS: Basophils % (auto) 0.8 % (0.0-2.0); Eosinophils % (auto) 0.6 % (0.0-7.0); Hematocrit 42.5 % (41.0-53.0); Lymphocytes # (auto) 1.9 uL; Lymphocytes % (auto) 15.1 % (10.0-50.0); Mean Corpuscular Hemoglobin 26.1 pg (28.0-32.0); Mean Corpuscular Hgb Conc. 32.8 g/dL (32.0-36.0); Mean Corpuscular Volume 79.5 fL (80.0-100.0); Monocytes % (auto) 8.1 % (0.0-12.0); Neutrophils # (auto) 9.7 uL; Neutrophils % (auto) 75.4 % (37.0-80.0); Platelet Count (auto) 344 10^3/uL (140-450); White Blood Cell 12.8 10^3/uL (4.4-10.8)
[2019-04-17 07:29] LABS: Calcium 8.6 mg/dL (8.5-10.1); Potassium 3.6 mmol/L (3.5-5.1)
[2019-04-17 07:32] LABS: BUN/Creatinine Ratio 17.7
[2019-04-17 08:55] VITALS: BP 110/51
--- NOTE | 2019-04-17 09:24 | NUR ---
AWAITING FOR DR GUEVARA TO MAKE CONTACT WITH O/C MD WITH [facility]. NO ACCEPTING MD PER [facility] BED CONTROL RN. I HAVE PAGED DR. GUEVARA TO CALL GROUP. YESTERDAY [facility] HAD 2 TB BEDS, NOW THEY HAVE NONE.
[2019-04-17] MEDS: RIFAMPIN 300 MG CAP PO SCH (10:34)
[2019-04-17] MEDS: FLUCONAZOLE 200MG/100ML 100 ML IV SCH ×2 (10:34→12:13)
[2019-04-17] MEDS: ETHAMBUTOL HCL 400 MG TAB PO SCH (10:34)
[2019-04-17] MEDS: LEVOFLOXACIN 500 MG TAB PO SCH (10:34)
[2019-04-17] MEDS: FAMOTIDINE 20 MG TAB PO SCH ×2 (10:34→22:02)
[2019-04-17] MEDS: PYRAZINAMIDE 500 MG TAB PO SCH (10:35)
[2019-04-17 13:00] VITALS: BP 122/75
--- NOTE | 2019-04-17 14:41 | NUR ---
DR. GUEVARA CALLED BACK AND STATED SHE MADE CONTACT WITH AT [facility] AND THAT THAT WANTS TO TALK TO HIS ID SPECIALIST TO SEE IF THEY CAN ACCEPT PT
--- NOTE | 2019-04-17 15:56 | NUR ---
SS Left message for Yvrose PAZ, regarding patient's transfer.
--- NOTE | 2019-04-17 16:06 | NUR ---
Nutrition Follow-up Notes Wt.: 62.0 kg as of yesterday. Pt's asleep in isolation room, no immediate family member at bedside during rounds this morning. Pt's no signs of distress noted earlier, currently on CCHO 60 gms/meal diet with adequate PO intake aeb 95% ave. consumed meals (x7) in last 3 days. Est. Needs BW [id number] kcal (25-30 kcal/kgBW), 62-74 gms pro (1.0-1.2 gms/kgBW). Will continue to monitor pertinent labs and reassess nutrient need prn Labs: Cr 0.62 L, Alb 3.0 L; HbA1c 12.4 H, ALP 137 H. Skin: Checo scale 20, low risk, skin intact per RN doc. GI: Pt had 1 BM this morning per cord maker. PES: Altered nutrition related lab values r/t acute/chronic medical condition aeb hyperglycemia, mild hypoalb, elev A1C Will continue to monitor PO intake, skin status, pertinent labs and weight trend. F/u in 3 to 5 days. Rec.: 1.) Continue close supervision with meals. 2.) Refer to CDE/RD for further nutrition education and weight monitoring upon discharged. 3.) Continue current plan of care.
--- NOTE | 2019-04-17 16:07 | NUR ---
TRANSFER: Accepting md at [facility] is Dr. Barrera per Dr. Campbell. I spoke to Nicole bed control at [facility] and they have no beds at this time. We will hope for discharges for tomorrow. auth for facility is [id number] per Katerina palencia [place]
--- NOTE | 2019-04-17 16:12 | NUR ---
GRAHAM Spoke with Yvrose STEVENSON, was informed that there are currently no beds available at [place]. Will inform Dr. Campbell.
--- NOTE | 2019-04-17 16:23 | NUR ---
PAGED Paged Dr. Campbell regarding update on patient transfer.
--- NOTE | 2019-04-17 16:27 | NUR ---
[facility] is on will call confirmed by Regina at [facility]
[2019-04-17 17:18] VITALS: BP 103/65
--- NOTE | 2019-04-17 19:53 | NUR ---
open note assumed care of pt. upon entering airborne iso room, pt and family at bedside. pt on room air no distress noted or expressed. pt bed locked, low and rails up x2. pt and family updated on plan of care, aware of pending transfer to higher level of care pending bed availability. pt given shower supplies. pt call call light in reach, encouraged to call nurse as needed. will round on pt q1hr and prn.
[2019-04-17 21:54] VITALS: BP 118/69
[2019-04-18 05:00] VITALS: BP 118/71
[2019-04-18] MEDS: ACCU-CHEK COMFORT CURVE STRIP VI SCH ×4 (06:38→22:17)
[2019-04-18] MEDS: metFORMIN HYDROCHLORIDE 500 MG TAB PO SCH ×2 (06:38→17:13)
[2019-04-18] MEDS: InsuLIN REG 1unit/0.01ml Soln (100units/ml) SC SCH ×4 (06:38→22:17)
--- NOTE | 2019-04-18 07:30 | NUR ---
OPENING SHIFT NOTE RECEIVED REPORT FROM [facility] NURSE AND ASSUMED CARE OF PATIENT. PATIENT IS A&OX4 AND IS CURRENTLY ON AIRBORNE PRECAUTIONS. PATIENT DENIES ANY C/O PAIN OR DISTRESS. PATIENT BED IN LOW POSITION, BRAKES LOCKED AND BED RAILS UP X2, CALL LIGHT WITHIN REACH. EDUCATED PATIENT CORN DETASSELER LIGHT USE PRN AND ON POC. PATIENT VERBALIZED UNDERSTANDING. CONTINUING TO MONITOR PATIENT Q1 HR AND PRN
--- NOTE | 2019-04-18 08:33 | NUR ---
I HAVE REFAXED TO [facility] PH [phone] TO SEE IF THEY HAVE AN ISO BED NOW, UNABLE TO F/U WITH [facility] [phone] BED CONTROL OR [facility] DUE TO PHONE ISSUES
[2019-04-18 09:00] VITALS: BP 106/62
--- NOTE | 2019-04-18 09:38 | NUR ---
Transfer: [facility] called me back and wanted more info, I await 's call back. I called [facility] and spoke to Kate in bed control and they have no beds, I will be faxing to [facility] and will ask our infection control to expand approval travel to include [facility]
[2019-04-18] MEDS: SODIUM CHLORIDE 0.9% 1,000 ML IV SCH (09:43)
[2019-04-18] MEDS: PYRAZINAMIDE 500 MG TAB PO SCH (09:44)
[2019-04-18] MEDS: LEVOFLOXACIN 500 MG TAB PO SCH (09:44)
[2019-04-18] MEDS: ETHAMBUTOL HCL 400 MG TAB PO SCH (09:44)
[2019-04-18] MEDS: FLUCONAZOLE 200MG/100ML 100 ML IV SCH ×2 (09:44→11:00)
[2019-04-18] MEDS: FAMOTIDINE 20 MG TAB PO SCH ×2 (09:44→21:30)
[2019-04-18] MEDS: RIFAMPIN 300 MG CAP PO SCH (09:44)
--- NOTE | 2019-04-18 11:15 | NUR ---
[facility] HAS NO ISOLATION BEDS, [facility] HAS NOT RECALLED ME BACK OF YET. INFECTION CONTROL IS TO SPEAK TO DR GUEVARA TO SEE IF PT REALLY NEEDS TO BE TRANSFERRED.
[2019-04-18] MEDS ORDERED: TEMAZEPAM 15 MG CAP PO PRN (12:30)
[2019-04-18 12:39] VITALS: BP 107/70
--- NOTE | 2019-04-18 14:00 | NUR ---
PAGED JACKSON LEWIS FROM CASE MANAGEMENT PAGED VIA PBX
--- NOTE | 2019-04-18 15:02 | NUR ---
TRANSFER Zoraida from [facility] stated her MDs talked and they have declined pt due to them not doing anything different for pt that we are doing for him at [facility]. No beds as of yet at other hospitals
--- NOTE | 2019-04-18 15:15 | NUR ---
ATTEMPT AT MD CONTACT CALLED MD PONCE'S OFFICE, SPOKE WITH TIER LIFT OPERATOR AND THEN WAS PLACED ON HOLD FOR APPROX 1O MINS
--- NOTE | 2019-04-18 15:37 | NUR ---
ATTEMPT AT MD CONTACT [address] PONCE'S OFFICE AGAIN AND ACCOUNT DIRECTOR SENT OUT A PAGE WITH MY CONTACT INFO
--- NOTE | 2019-04-18 15:47 | NUR ---
SPOKE TO MD SPOKE TO MD GUEVARA, ORDERS PLACED FOR SPUTUMS
--- NOTE | 2019-04-18 16:20 | NUR ---
transfer on hold until sputum samples are completed per med in Infection Control
--- NOTE | 2019-04-18 17:49 | NUR ---
RECEIVED REPORT RECEIVED REPORT AND ASSUMED CARE OF PATIENT. WILL CONTINUE TO MONITOR AND IMPLEMENT ORDERS NEEDED.
[2019-04-18 18:25] VITALS: BP 114/75
--- NOTE | 2019-04-18 20:15 | NUR ---
OPEN NOTE assumed care of pt. pt room is airborne iso for active TB. upon entering room pt awake, alert and oriented x4 with at bedside. pt on room air, no distress noted or expressed. pt and updated on plan of care, pt aware of no longer being transferred to higher level of care. no additional questions at this time. this nurse reinforced to pt and the importance of minimizing exposure to visitors as well as critical need to observe proper precautions as relates to his particular diagnosis; which includes but is not limited to proper use of N95 mask, this nurse reinforced proper use of mask, measures to ensure proper fit, seal. pt and agreed and had no additional questions at this time. i provided additional boxes of n95 masks outside patients room with gowns and gloves available as well. call light in reach, pt encouraged to call as needed. will round on pt q1hr and prn.
[2019-04-18 22:00] VITALS: BP 111/75
[2019-04-19] MEDS: SODIUM CHLORIDE 0.9% 1,000 ML IV SCH (02:59)
[2019-04-19 04:56] VITALS: BP 115/72
[2019-04-19 05:58] LABS: Alanine Aminotransferase 22 U/L (16-61); Aspartate Aminotransferase 13 U/L (15-37); Bilirubin, Direct < 0.1 mg/dL (0-0.2)
[2019-04-19 06:01] LABS: Alkaline Phosphatase 135 U/L (45-117); Bilirubin, Total 0.2 mg/dL (0.2-1.0)
[2019-04-19] MEDS: metFORMIN HYDROCHLORIDE 500 MG TAB PO SCH ×2 (06:20→17:52)
[2019-04-19] MEDS: InsuLIN REG 1unit/0.01ml Soln (100units/ml) SC SCH ×4 (06:20→22:10)
[2019-04-19] MEDS: ACCU-CHEK COMFORT CURVE STRIP VI SCH ×4 (06:21→22:10)
--- NOTE | 2019-04-19 06:27 | NUR ---
paged respiratory in order to obtain sputum for AFB.
--- NOTE | 2019-04-19 07:45 | NUR ---
Respiratory note: SPUTUM SAMPLE OBTAINED, SENT TO LAB.
[2019-04-19 08:40] VITALS: BP 107/66
--- NOTE | 2019-04-19 08:56 | NUR ---
Called lab/sputum culture Lab stated they received the sputum culture this morning.
[2019-04-19] MEDS: FLUCONAZOLE 200MG/100ML 100 ML IV SCH ×2 (10:16→10:58)
[2019-04-19] MEDS: RIFAMPIN 300 MG CAP PO SCH (10:17)
[2019-04-19] MEDS: LEVOFLOXACIN 500 MG TAB PO SCH (10:17)
[2019-04-19] MEDS: FAMOTIDINE 20 MG TAB PO SCH ×2 (10:17→22:10)
[2019-04-19] MEDS: ETHAMBUTOL HCL 400 MG TAB PO SCH (10:17)
[2019-04-19] MEDS: PYRAZINAMIDE 500 MG TAB PO SCH (10:17)
[2019-04-19 13:00] VITALS: BP 115/70
[2019-04-19 16:53] VITALS: BP 102/68
--- NOTE | 2019-04-19 19:30 | NUR ---
Opening shift note Patient in bed alert and oriented x 4, watching TV, verbally coherent able to make needs known. Patient's respiration even and unlabored, denies pain and discomfort at this time. Plan of care discussed, patient verbalized understanding. All needs attended, will continue to monitor. Signed: 04/19/19 at 2131 by Natividad Lubin RN
[2019-04-19 21:00] VITALS: BP 134/73
[2019-04-20 04:30] VITALS: BP 109/76
--- NOTE | 2019-04-20 05:21 | NUR ---
RT paged for AFB. Patient stated he is not able to cough out his phlegm for sputum sample.
--- NOTE | 2019-04-20 05:37 | NUR ---
Re paged RT, Per RT, will be getting the sample in a few minutes.
--- NOTE | 2019-04-20 06:10 | NUR ---
Respiratory note: SPUTUM SAMPLE OBTAINED, SENT TO LAB.
[2019-04-20] MEDS: InsuLIN REG 1unit/0.01ml Soln (100units/ml) SC SCH ×4 (06:27→21:30)
[2019-04-20] MEDS: ACCU-CHEK COMFORT CURVE STRIP VI SCH ×4 (06:28→21:29)
[2019-04-20] MEDS: metFORMIN HYDROCHLORIDE 500 MG TAB PO SCH ×2 (06:28→17:53)
--- NOTE | 2019-04-20 08:00 | NUR ---
ASSESSMENT NOTE PATIENT IS ALERT ORIENTED X4, RESTING IN BED COMFORTABLY, NO DISTRESS NOTED, NO ACTIVE COUGH NOTED, ABLE TO VERBALIS HIS DEMANDS, SELF REPOSITION, AMBULATE NEEDED, PAIN 0/10, PATIENT CONTINUE ON DROPLET PRECAUTIONS, MONITOR EVERY SHIFT, CALL LIGHT WITHIN REACH.
[2019-04-20 08:27] VITALS: BP 111/65
[2019-04-20] MEDS: ETHAMBUTOL HCL 400 MG TAB PO SCH (09:47)
[2019-04-20] MEDS: FLUCONAZOLE 200MG/100ML 100 ML IV SCH ×2 (09:47→11:37)
[2019-04-20] MEDS: RIFAMPIN 300 MG CAP PO SCH (09:47)
[2019-04-20] MEDS: LEVOFLOXACIN 500 MG TAB PO SCH (09:47)
[2019-04-20] MEDS: PYRAZINAMIDE 500 MG TAB PO SCH (09:48)
[2019-04-20] MEDS: FAMOTIDINE 20 MG TAB PO SCH ×2 (09:48→21:30)
--- NOTE | 2019-04-20 10:30 | NUR ---
DR VELÁZQUEZ IS HERE FOLLOWING UP ON PT WITH NEW ORDERS
[2019-04-20 11:54] VITALS: BP 119/72
--- NOTE | 2019-04-20 15:03 | NUR ---
Nutrition Follow-up Notes Wt.: 62.0 kg Pt's asleep in isolation room, no immediate family member at bedside during rounds this morning. Pt's no signs of distress noted earlier, currently on CCHO 60 gms/meal diet with adequate PO of > 75% x 2 days per RN doc Est. Needs BW [id number] kcal (25-30 kcal/kgBW), 62-74 gms pro (1.0-1.2 gms/kgBW). Will continue to monitor pertinent labs and reassess nutrient need prn Labs: ALB 3.0 L, POC GLU 124 H Skin: [place] scale 20, low risk, skin intact per RN doc. GI: Pt had 1 BM today per life agent. PES: Altered nutrition related lab values r/t acute/chronic medical condition aeb hyperglycemia, mild hypoalb, elev A1C Will continue to monitor PO intake, skin status, pertinent labs and weight trend. F/u in 3 to 5 days. Rec.: 1.) Continue close supervision with meals. 2.) Refer to CDE/RD for further nutrition education and weight monitoring upon discharged. 3.) Continue current plan of care.
--- NOTE | 2019-04-20 15:30 | NUR ---
FAMILY PATIENT AT BED SIDE
[2019-04-20 16:47] VITALS: BP 108/71
--- NOTE | 2019-04-20 18:48 | NUR ---
PATIENT CONTINUE STABLE, CONTINUE MONITORING.
[2019-04-20 22:00] VITALS: BP 109/74
[2019-04-21 05:00] VITALS: BP 107/69
--- NOTE | 2019-04-21 05:41 | NUR ---
Paged RT for AFB. Awaiting call back. Addendum: 04/21/19 at 0710 by Natividad Lubin RN Patient stated unable to cough phlegm.
--- NOTE | 2019-04-21 06:17 | NUR ---
Received call back from RT. Per RT will do AFB in a few minutes.
[2019-04-21] MEDS: ACCU-CHEK COMFORT CURVE STRIP VI SCH ×4 (06:20→21:22)
[2019-04-21] MEDS: InsuLIN REG 1unit/0.01ml Soln (100units/ml) SC SCH ×4 (06:20→21:22)
[2019-04-21] MEDS: metFORMIN HYDROCHLORIDE 500 MG TAB PO SCH ×2 (06:20→17:59)
[2019-04-21 06:27] LABS: Basophils # (auto) 0.1 uL; Basophils % (auto) 0.9 % (0.0-2.0); Hemoglobin 14.2 g/dL (13.5-17.5); Lymphocytes # (auto) 2.4 uL; Mean Corpuscular Hemoglobin 26.1 pg (28.0-32.0); Red Blood Cells 5.45 10^6/uL (4.5-5.90)
[2019-04-21 06:30] LABS: Eosinophils # (auto) 0.1 uL; Eosinophils % (auto) 1.2 % (0.0-7.0); Hematocrit 42.9 % (41.0-53.0); Lymphocytes % (auto) 21.4 % (10.0-50.0); Mean Corpuscular Hgb Conc. 33.2 g/dL (32.0-36.0); Mean Corpuscular Volume 78.8 fL (80.0-100.0); Monocytes # (auto) 1.1 uL; Monocytes % (auto) 9.7 % (0.0-12.0); Neutrophils # (auto) 7.6 uL; Neutrophils % (auto) 66.8 % (37.0-80.0); Platelet Count (auto) 367 10^3/uL (140-450); Red Cell Distribution Width 13.9 % (11.8-14.3); White Blood Cell 11.4 10^3/uL (4.4-10.8)
[2019-04-21 06:37] LABS: Potassium 3.8 mmol/L (3.5-5.1)
[2019-04-21 06:44] LABS: BUN/Creatinine Ratio 15.5; Bilirubin, Total 0.1 mg/dL (0.2-1.0); Total Protein 8.2 g/dL (6.4-8.2)
--- NOTE | 2019-04-21 06:53 | NUR ---
Paged RT to confirm if AFB sample was obtained. Awaiting call back.
--- NOTE | 2019-04-21 06:57 | NUR ---
Received call back from RT. Per RT will be on his way. Charge nurse made aware.
--- NOTE | 2019-04-21 07:05 | NUR ---
Spoke with RT ELINOR and informed RN RT Heriberto will be going to patient's room to obtain the sample.
--- NOTE | 2019-04-21 08:03 | NUR ---
Sputum AFB for today has been collected, verified from Lab.
[2019-04-21 08:24] VITALS: BP 110/74
[2019-04-21] MEDS: FAMOTIDINE 20 MG TAB PO SCH ×2 (09:59→21:14)
[2019-04-21] MEDS: FLUCONAZOLE 200MG/100ML 100 ML IV SCH ×2 (09:59→12:13)
[2019-04-21] MEDS: LEVOFLOXACIN 500 MG TAB PO SCH (09:59)
[2019-04-21] MEDS: RIFAMPIN 300 MG CAP PO SCH (10:00)
[2019-04-21] MEDS: PYRAZINAMIDE 500 MG TAB PO SCH (10:00)
[2019-04-21] MEDS: ETHAMBUTOL HCL 400 MG TAB PO SCH (10:07)
[2019-04-21 13:00] VITALS: BP 132/72
--- NOTE | 2019-04-21 14:30 | NUR ---
Patient had a shower.
[2019-04-21 17:14] VITALS: BP 107/78
--- NOTE | 2019-04-21 19:30 | NUR ---
ASSUMED CARE, PT. AWAKE, RELATIVES AT BEDSIDE, NO C/O PAIN, NO SON.
[2019-04-21 21:30] VITALS: BP 115/66
[2019-04-22 04:30] VITALS: BP 115/71
[2019-04-22] MEDS: metFORMIN HYDROCHLORIDE 500 MG TAB PO SCH ×2 (06:08→17:21)
[2019-04-22] MEDS: InsuLIN REG 1unit/0.01ml Soln (100units/ml) SC SCH ×4 (06:09→21:24)
[2019-04-22] MEDS: ACCU-CHEK COMFORT CURVE STRIP VI SCH ×4 (06:09→21:24)
--- NOTE | 2019-04-22 08:00 | NUR ---
Opening Shift Note Assumed care of patient, awake and alert. No S/S of distress/SOB or pain. Still awaiting results of the second and third sputum AFB. Instructed on POC and to call for assist PRN, will continue to monitor for changes Q1hr and PRN.
[2019-04-22 09:18] VITALS: BP 111/62
[2019-04-22] MEDS: FLUCONAZOLE 200MG/100ML 100 ML IV SCH ×2 (10:05→11:27)
[2019-04-22] MEDS: FAMOTIDINE 20 MG TAB PO SCH ×2 (10:06→21:21)
[2019-04-22] MEDS: LEVOFLOXACIN 500 MG TAB PO SCH (10:06)
[2019-04-22] MEDS: RIFAMPIN 300 MG CAP PO SCH (10:06)
[2019-04-22] MEDS: PYRAZINAMIDE 500 MG TAB PO SCH (10:06)
[2019-04-22] MEDS: ETHAMBUTOL HCL 400 MG TAB PO SCH (10:07)
[2019-04-22 13:06] VITALS: BP 122/76
--- NOTE | 2019-04-22 15:00 | NUR ---
Sputum AFB 3rd day turned out positive per microbiology. Still awaiting results for the 2nd day sputum AFB.
[2019-04-22 17:13] VITALS: BP 125/77
--- NOTE | 2019-04-22 19:25 | NUR ---
assumed care, pt. awake, relatives at bedside, no c/o pain, no sob.
[2019-04-22 21:58] VITALS: BP 110/71
[2019-04-23 04:39] VITALS: BP 123/71
[2019-04-23] MEDS: ACCU-CHEK COMFORT CURVE STRIP VI SCH ×4 (06:01→22:18)
[2019-04-23] MEDS: metFORMIN HYDROCHLORIDE 500 MG TAB PO SCH ×2 (06:01→17:49)
[2019-04-23] MEDS: InsuLIN REG 1unit/0.01ml Soln (100units/ml) SC SCH ×4 (06:01→22:00)
[2019-04-23 09:09] VITALS: BP 124/84
[2019-04-23] MEDS: FAMOTIDINE 20 MG TAB PO SCH ×2 (09:53→22:19)
[2019-04-23] MEDS: LEVOFLOXACIN 500 MG TAB PO SCH (09:53)
[2019-04-23] MEDS: FLUCONAZOLE 200MG/100ML 100 ML IV SCH ×2 (09:53→11:40)
[2019-04-23] MEDS: RIFAMPIN 300 MG CAP PO SCH (09:54)
[2019-04-23] MEDS: PYRAZINAMIDE 500 MG TAB PO SCH (09:54)
[2019-04-23] MEDS: ETHAMBUTOL HCL 400 MG TAB PO SCH (09:54)
--- NOTE | 2019-04-23 10:08 | NUR ---
Called Microbiology spoke with Priscilla peñaloza: follow up of the sputum AFB results done on the 20 of April. Per Priscilla they already made a call today and also waiting for the results that possibly will come out tomorrow.
[2019-04-23 13:00] VITALS: BP 115/69
[2019-04-23 13:54] LABS: Bilirubin, Direct 0.2 mg/dL (0-0.2)
[2019-04-23 13:56] LABS: Bilirubin, Total 0.4 mg/dL (0.2-1.0); Total Protein 8.8 g/dL (6.4-8.2)
[2019-04-23 17:14] VITALS: BP 104/71
--- NOTE | 2019-04-23 19:15 | NUR ---
Opening Shift Note Received report from Say LIMA. Assumed care of patient, awake and alert. No S/S of distress/SOB or pain. Instructed on POC and to call for assist PRN, will continue to monitor for changes Q1hr and PRN.
[2019-04-23 22:00] VITALS: BP 107/70
[2019-04-24 05:06] VITALS: BP 102/77
[2019-04-24] MEDS: ACCU-CHEK COMFORT CURVE STRIP VI SCH ×4 (06:57→22:03)
[2019-04-24] MEDS: metFORMIN HYDROCHLORIDE 500 MG TAB PO SCH ×2 (06:57→18:06)
[2019-04-24] MEDS: InsuLIN REG 1unit/0.01ml Soln (100units/ml) SC SCH ×4 (06:57→22:04)
--- NOTE | 2019-04-24 08:00 | NUR ---
Opening Shift Note Assumed care of patient, awake and alert. No S/S of distress/SOB or pain. Maintained on Airborne precaution for TB. Instructed on POC and to call for assist PRN, will continue to monitor for changes Q1hr and PRN.
[2019-04-24 09:36] VITALS: BP 108/67
[2019-04-24] MEDS: FAMOTIDINE 20 MG TAB PO SCH ×2 (10:06→22:04)
[2019-04-24] MEDS: RIFAMPIN 300 MG CAP PO SCH (10:07)
[2019-04-24] MEDS: FLUCONAZOLE 200MG/100ML 100 ML IV SCH ×2 (10:07→12:16)
[2019-04-24] MEDS: LEVOFLOXACIN 500 MG TAB PO SCH (10:07)
[2019-04-24] MEDS: ETHAMBUTOL HCL 400 MG TAB PO SCH (10:08)
[2019-04-24] MEDS: PYRAZINAMIDE 500 MG TAB PO SCH (10:08)
[2019-04-24 13:00] VITALS: BP 104/76
--- NOTE | 2019-04-24 15:32 | NUR ---
Discharge will be hold for today. One TB medication is not available and will be ordered today and can be picked up tomorrow. possible discharge tomorrow. Addendum: 04/24/19 at 1705 by Say Cheng RN patient and Kia made aware.
--- NOTE | 2019-04-24 16:30 | NUR ---
Spoke with Lilian from infection control that the TB meds been completed. Paged Dr. Campbell.
--- NOTE | 2019-04-24 17:02 | NUR ---
Sputum AFB done on 04/23/19 came out positive.
[2019-04-24 17:07] VITALS: BP 100/66
--- NOTE | 2019-04-24 17:19 | NUR ---
Antibiotics and TB medications handed by pharmacist. Will be given to the patient prior to discharge. Will endorse to the shift superintendent caustic cresylate RN.
[2019-04-24 22:43] VITALS: BP 119/73
[2019-04-25 05:08] VITALS: BP 114/66
[2019-04-25 06:01] LABS: Basophils # (auto) 0.1 uL; Basophils % (auto) 0.8 % (0.0-2.0); Eosinophils # (auto) 0.1 uL; Hematocrit 44.1 % (41.0-53.0); Hemoglobin 14.9 g/dL (13.5-17.5); Lymphocytes # (auto) 2.1 uL; Lymphocytes % (auto) 16.4 % (10.0-50.0); Mean Corpuscular Hemoglobin 26.3 pg (28.0-32.0); Mean Corpuscular Hgb Conc. 33.7 g/dL (32.0-36.0); Mean Corpuscular Volume 78.2 fL (80.0-100.0); Monocytes # (auto) 1.3 uL; Monocytes % (auto) 9.9 % (0.0-12.0); Neutrophils # (auto) 9.2 uL; Neutrophils % (auto) 71.9 % (37.0-80.0); Nucleated Red Blood Cells % 0.1 %; Platelet Count (auto) 359 10^3/uL (140-450); Red Blood Cells 5.64 10^6/uL (4.5-5.90); Red Cell Distribution Width 13.6 % (11.8-14.3); White Blood Cell 12.8 10^3/uL (4.4-10.8)
[2019-04-25] MEDS: ACCU-CHEK COMFORT CURVE STRIP VI SCH ×2 (06:42→11:30)
[2019-04-25] MEDS: InsuLIN REG 1unit/0.01ml Soln (100units/ml) SC SCH ×2 (06:42→11:30)
[2019-04-25] MEDS: metFORMIN HYDROCHLORIDE 500 MG TAB PO SCH (06:43)
[2019-04-25 09:00] VITALS: BP 112/70
[2019-04-25] MEDS: ETHAMBUTOL HCL 400 MG TAB PO SCH (09:35)
[2019-04-25] MEDS: LEVOFLOXACIN 500 MG TAB PO SCH (09:35)
[2019-04-25] MEDS: RIFAMPIN 300 MG CAP PO SCH (09:35)
[2019-04-25] MEDS: PYRAZINAMIDE 500 MG TAB PO SCH (09:36)
[2019-04-25] MEDS: FAMOTIDINE 20 MG TAB PO SCH (09:36)
--- NOTE | 2019-04-25 10:16 | NUR ---
DR GUEVARA IS HERE DOUBLE CHECKING PATIENT'S NEW PRESCRIBED MEDICATIONS, FOUND OUT THAT ITS NOT FOR A FULL MONTH, SAID THAT SHE WILL CALL [facility] IN [facility].
--- NOTE | 2019-04-25 10:21 | NUR ---
CALLED [facility]CTION CONTROL [facility], REQUESTED A COPY OF ISOLATION AGREEMENT SIGNED BY PT, SAID THAT HE IS COMING OVER.
[2019-04-25] MEDS ORDERED: RIFA300C3 PO (12:01)
[2019-04-25] MEDS ORDERED: LEVO500T21 PO (12:01)
[2019-04-25] MEDS ORDERED: METF500T PO (12:01)
[2019-04-25] MEDS ORDERED: ETHA400T20 PO (12:01)
--- NOTE | 2019-04-25 12:30 | NUR ---
PHARMACY IS HERE WITH THE REST OF THE MEDICATIONS
--- NOTE | 2019-04-25 12:35 | NUR ---
DR GUEVARA IS HERE TO EMPHASIZE ALL THE DISCHARGE INSTRUCTION WITH PT AND PATIENT'S .
[2019-04-25 13:00] VITALS: BP 114/74
--- NOTE | 2019-04-25 13:45 | NUR ---
A COMPLETE RX GIVEN TO PT AND PATIENT A VERBALIS UNDERSTANDING.
--- NOTE | 2019-04-25 13:58 | NUR ---
Discharge instructions given as ordered. Encourage to follow up with PMD as instructed. All questions and concerns addressed. Patient verbalized understanding. Medication reconciliation form completed and copy given to patient. IV removed with catheter intact, pressure dressing applied, miller catheter removed. Patient taken to vehicle via wheelchair with all personal belongings, accompanied by staff and family member. No distress noted at time of departure.
== END 2019-04-25 13:55 | disposition home or self-care (01) | DRG 137 ==
LOC: ER 19:49 → OVERFLOW 19:50 → WEST WING 04-04 08:20 → EAST 04-05 16:32
PROVIDERS: ADMIT Nurse Practitioner; ATTEND Internal Medicine
DX: A15.0 Tuberculosis of lung (principal); E44.1 Mild protein-calorie malnutrition; J18.0 Bronchopneumonia, unspecified organism; J90 Pleural effusion, not elsewhere classified; E11.9 Type 2 diabetes mellitus without complications; Z16.30 Resistance to unspecified antimicrobial drugs; Z79.84 Long term (current) use of oral hypoglycemic drugs; Z68.23 Body mass index [BMI] 23.0-23.9, adult
CPT/HCPCS: 36415; 71045; 71260; 80048; 80053; 80061; 80076; 80202; 82962; 83036; 83605; 83735; 85025; 85652; 86141; 86703; 87040; 87070; 87077; 87205; 94640; 96361; 96365; 96367; 96368; G0378; J0696; J1450; J1815; J1956; J2405; J2543